=== PATIENT | male | born 1935 | race African-American/Black ===

== ENCOUNTER 2019-05-16 14:48 | Inpatient (IN) | payer MEDICARE, MEDICAID ==
[~2019-05-16] VITALS: Ht 182.9 cm; Wt 68.5 kg
[2019-05-16] MEDS ORDERED: SODIUM CHLORIDE 0.9% 1,000 ML IV ONE (15:12)
[2019-05-16 15:32] LABS: BASOPHILS % 0.2 % (0.0-2.0); EOSINOPHILS % 0.1 % (0.0-5.0); HEMOGLOBIN. 13.7 g/dL (14.0-18.0); LYMPHOCYTES % 8.6 % (20.0-50.0); MEAN CORPUSCULAR VOLUME 98.8 fL (80.0-94.0); MEAN PLATELET VOLUME 7.7 fl (7.4-10.4); MONOCYTES % 10.9 % (2.0-8.0); NEUTROPHILS % 80.2 % (40.0-76.0); PLATELET 392 x1000/uL (130-400); RED BLOOD CELL COUNT 4.15 mill/uL (4.7-6.1); RED CELL DISTRIBUTION WIDTH 13.4 % (11.6-14.6)
[2019-05-16 15:39] LABS: CHLORIDE 110 mEq/L (98-107)
[2019-05-16 15:41] LABS: PROTHROMBIN TIME 10.5 sec (9.6-11.0)
[2019-05-16] MEDS ORDERED: DEXTROSE 50% WATER 50ML SYRINGE IV ONE (16:15)
[2019-05-16] MEDS ORDERED: CALCIUM GLUCONATE 1,000 MG in DEXT 5% WATER 100 ML IV ONE (16:15)
[2019-05-16] MEDS ORDERED: INSULIN REGULAR (HUMULIN R) 300UNITS/3ML IV ONE (16:15)
[2019-05-16] MEDS ORDERED: SODIUM BICARBONATE 8.4% 1 MEQ/ML 50ML SYR IV ONE (16:15)
[2019-05-16 21:55] VITALS: BP 98/64
[2019-05-16 23:00] VITALS: BP 98/64
[2019-05-17] VITALS: BP 101/62
[2019-05-17] MEDS ORDERED: [UNRECOGNIZED DRUG - CODE] PO (01:04)
[2019-05-17] MEDS ORDERED: TOPUD PO (01:04)
[2019-05-17] MEDS ORDERED: CHOL400T PO (01:04)
[2019-05-17] MEDS ORDERED: FERR325T6 PO (01:04)
[2019-05-17] MEDS ORDERED: MIRT15TA6 PO (01:04)
[2019-05-17] MEDS ORDERED: POLY250017 MT (01:04)
[2019-05-17] MEDS ORDERED: SENN-170 PO (01:04)
[2019-05-17] MEDS ORDERED: MULT-1116 PO (01:04)
[2019-05-17] MEDS ORDERED: ASPI-1393 PO (01:04)
[2019-05-17] MEDS ORDERED: BUDE0.5A3 IH (01:04)
[2019-05-17] MEDS ORDERED: TRAV2.5D OP (01:04)
[2019-05-17] MEDS ORDERED: CRAN650C PO (01:04)
[2019-05-17] MEDS: DEXT 5%/0.45% NACL 1000ML 1,000 ML IV SCH ×3 (01:56→21:04)
[2019-05-17 04:00] VITALS: BP 99/71
[2019-05-17 07:29] LABS: HEMATOCRIT. 38.2 % (42.0-52.0); HEMOGLOBIN. 12.8 g/dL (14.0-18.0); MEAN CORPUSCULAR VOLUME 98.6 fL (80.0-94.0); MEAN PLATELET VOLUME 7.7 fl (7.4-10.4); PLATELET 335 x1000/uL (130-400); RED BLOOD CELL COUNT 3.88 mill/uL (4.7-6.1); RED CELL DISTRIBUTION WIDTH 13.1 % (11.6-14.6)
[2019-05-17 08:14] LABS: PLATELET ESTIMATE NORMAL
[2019-05-17 08:17] LABS: CHLORIDE 111 mEq/L (98-107)
[2019-05-17 08:25] LABS: PHOSPHORUS 3.5 mg/dL (2.5-4.9)
[2019-05-17 08:55] VITALS: BP 109/69
[2019-05-17] MEDS ORDERED: ACETAMINOPHEN 325MG TABLET PO PRN (09:00)
[2019-05-17] MEDS ORDERED: DEXTROMETHORPHAN PO PRN (11:00)
[2019-05-17] MEDS ORDERED: GUAIFENESIN PO PRN (11:00)
[2019-05-17] MEDS ORDERED: GUAIFENESIN-DM 200MG-20MG/10ML UDC PO PRN (11:00)
[2019-05-17] MEDS ORDERED: SODIUM POLYSTYRENE SULFONATE 15 G/60 ML BOT PO NR (12:00)
[2019-05-17] MEDS: CHOLECALCIFEROL (VIT D3) 400 UNIT TABLET PO SCH (12:11)
[2019-05-17 12:35] VITALS: BP 120/80
[2019-05-17 13:02] LABS: ETHANOL BLOOD < 10 mg/dL
[2019-05-17 13:07] LABS: CREATINE KINASE 43 IU/L (39-308)
[2019-05-17 13:08] LABS: T4 FREE 1.13 ng/dL (0.76-1.46)
[2019-05-17 13:11] LABS: CLARITY URINE TURBID (CLEAR); COLOR URINE YELLOW (YELLOW); KETONES URINE TRACE (NEGATIVE); LEUKOCYTE ESTERASE URINE 3+ (NEGATIVE); NITRITE URINE NEGATIVE (NEGATIVE); OCCULT BLOOD URINE 2+ (NEGATIVE); PH URINE 7.5 (4.5-8.0); PROTEIN URINE 3+ (NEGATIVE); SPECIFIC GRAVITY URINE 1.013 (1.005-1.030); UROBILINOGEN URINE 0.2 E.U./dL (0.2-1.0)
[2019-05-17 13:54] LABS: *AMPHETAMINES SCREEN URINE NEGATIVE (NEGATIVE); *BARBITURATES SCREEN URINE NEGATIVE (NEGATIVE); *BENZODIAZEPINES SCREEN URINE NEGATIVE (NEGATIVE); *COCAINE SCREEN URINE NEGATIVE (NEGATIVE); CANNABINOID URINE SCREEN NEGATIVE (NEGATIVE); OPIATES URINE SCREEN NEGATIVE (NEGATIVE); PHENCYCLIDINE URINE SCREEN NEGATIVE (NEGATIVE)
[2019-05-17 13:57] LABS: METHADONE URINE SCREEN NEGATIVE (NEGATIVE)
[2019-05-17 14:09] LABS: FOLIC ACID (FOLATE) SERUM 6.7 ng/mL (>5.38)
[2019-05-17 16:15] VITALS: BP 120/78
[2019-05-17 20:00] VITALS: BP 103/59
[2019-05-17] MEDS: LATANOPROST 0.005% OPHTH DROPS 2.5ML BOTHEYE SCH (21:04)
[2019-05-18] VITALS: BP 108/61
[2019-05-18 04:00] VITALS: BP 115/62
[2019-05-18] MEDS: DEXT 5%/0.45% NACL 1000ML 1,000 ML IV SCH ×2 (06:32→17:49)
[2019-05-18 07:12] LABS: EOSINOPHILS % 2.7 % (0.0-5.0); HEMOGLOBIN. 12.1 g/dL (14.0-18.0); LYMPHOCYTES % 14.5 % (20.0-50.0); MEAN CORPUSCULAR HEMOGLOBIN 33.2 pg (28.0-32.0); MEAN CORPUSCULAR VOLUME 98.9 fL (80.0-94.0); MEAN PLATELET VOLUME 7.9 fl (7.4-10.4); MONOCYTES % 12.8 % (2.0-8.0); PLATELET 325 x1000/uL (130-400); RED BLOOD CELL COUNT 3.64 mill/uL (4.7-6.1); RED CELL DISTRIBUTION WIDTH 13.1 % (11.6-14.6)
[2019-05-18 07:56] LABS: PHOSPHORUS 3.3 mg/dL (2.5-4.9)
[2019-05-18 08:00] VITALS: BP 111/55
[2019-05-18] MEDS: CHOLECALCIFEROL (VIT D3) 400 UNIT TABLET PO SCH (09:00)
[2019-05-18] MEDS: BUDESONIDE 0.5MG/2ML NEB HHN SCH ×5 (09:00→22:05)
[2019-05-18 12:00] VITALS: BP 99/60
[2019-05-18 16:00] VITALS: BP 99/55
[2019-05-18 20:00] VITALS: BP 109/68
[2019-05-18] MEDS: LATANOPROST 0.005% OPHTH DROPS 2.5ML BOTHEYE SCH (20:20)
[2019-05-19] VITALS: BP 111/67
[2019-05-19] MEDS: DEXT 5%/0.45% NACL 1000ML 1,000 ML IV SCH ×3 (02:54→21:44)
[2019-05-19 04:00] VITALS: BP 110/64
[2019-05-19 07:46] LABS: HEMATOCRIT. 34.8 % (42.0-52.0); HEMOGLOBIN. 11.4 g/dL (14.0-18.0); MEAN CORPUSCULAR HEMOGLOBIN 32.8 pg (28.0-32.0); MEAN CORPUSCULAR VOLUME 100.2 fL (80.0-94.0); MEAN PLATELET VOLUME 8.1 fl (7.4-10.4); PLATELET 275 x1000/uL (130-400); RED BLOOD CELL COUNT 3.48 mill/uL (4.7-6.1); RED CELL DISTRIBUTION WIDTH 12.9 % (11.6-14.6)
[2019-05-19 08:00] VITALS: BP 102/64
[2019-05-19] MEDS: CHOLECALCIFEROL (VIT D3) 400 UNIT TABLET PO SCH (08:57)
[2019-05-19] MEDS ORDERED: CEFTRIAXONE 1 G PREMIX 50 ML IV SCH (09:30)
[2019-05-19] MEDS: IPRATROPIUM/ALBUTEROL 0.5-3(2.5)MG/3ML NEB HHN SCH ×4 (09:54→20:40)
[2019-05-19] MEDS: BUDESONIDE 0.5MG/2ML NEB HHN SCH ×2 (09:54→20:40)
[2019-05-19] MEDS ORDERED: CEFAZOLIN 1000MG PREMIX 50 ML IV SCH (10:00)
[2019-05-19 10:26] LABS: TOTAL IRON BINDING CAPACITY 304 ug/dL (250-450)
[2019-05-19 11:33] LABS: PLATELET ESTIMATE NORMAL
[2019-05-19 12:00] VITALS: BP 104/59
[2019-05-19] MEDS: CEFTRIAXONE 1,000 MG in DEXTROSE 5% WATER 50 ML IV SCH (12:11)
[2019-05-19] MEDS ORDERED: FENTANYL CITRATE/PF 50MCG/ML 2ML VIAL ONE (15:24)
[2019-05-19] MEDS ORDERED: MIDAZOLAM HCL 5 MG/5 ML VIAL ONE (15:24)
[2019-05-19] MEDS ORDERED: MIDAZOLAM HCL 5 MG/5 ML VIAL IV PRN (15:24)
[2019-05-19 17:00] VITALS: BP 106/59
[2019-05-19 20:00] VITALS: BP 107/57
[2019-05-19] MEDS: LATANOPROST 0.005% OPHTH DROPS 2.5ML BOTHEYE SCH (21:45)
[2019-05-20] VITALS: BP 106/57
[2019-05-20] MEDS: IPRATROPIUM/ALBUTEROL 0.5-3(2.5)MG/3ML NEB HHN SCH ×5 (01:13→15:59)
[2019-05-20 04:00] VITALS: BP 121/79
[2019-05-20 08:00] VITALS: BP 95/55
[2019-05-20] MEDS: BUDESONIDE 0.5MG/2ML NEB HHN SCH (09:21)
[2019-05-20] MEDS: CHOLECALCIFEROL (VIT D3) 400 UNIT TABLET PO SCH (09:39)
[2019-05-20] MEDS: DEXT 5%/0.45% NACL 1000ML 1,000 ML IV SCH ×2 (09:40→22:26)
[2019-05-20] MEDS: CEFTRIAXONE 1,000 MG in DEXTROSE 5% WATER 50 ML IV SCH (11:29)
[2019-05-20 12:00] VITALS: BP 94/55
[2019-05-20 16:00] VITALS: BP 113/67
[2019-05-20 16:18] LABS: BASOPHILS % 0.5 % (0.0-2.0); EOSINOPHILS % 1.3 % (0.0-5.0); HEMATOCRIT. 33.1 % (42.0-52.0); HEMOGLOBIN. 11.1 g/dL (14.0-18.0); LYMPHOCYTES % 11.9 % (20.0-50.0); MEAN CORPUSCULAR HEMOGLOBIN 33.1 pg (28.0-32.0); MEAN CORPUSCULAR VOLUME 98.9 fL (80.0-94.0); MEAN PLATELET VOLUME 7.8 fl (7.4-10.4); MONOCYTES % 11.5 % (2.0-8.0); NEUTROPHILS % 74.8 % (40.0-76.0); PLATELET 284 x1000/uL (130-400); RED BLOOD CELL COUNT 3.35 mill/uL (4.7-6.1); RED CELL DISTRIBUTION WIDTH 12.8 % (11.6-14.6)
[2019-05-20 16:25] LABS: CHLORIDE 115 mEq/L (98-107)
[2019-05-20 20:32] VITALS: BP 104/65
[2019-05-20] MEDS: LATANOPROST 0.005% OPHTH DROPS 2.5ML BOTHEYE SCH (22:26)
[2019-05-21] VITALS: BP 110/67
[2019-05-21] MEDS: IPRATROPIUM/ALBUTEROL 0.5-3(2.5)MG/3ML NEB HHN SCH ×7 (00:15→23:51)
[2019-05-21 04:00] VITALS: BP 106/59
[2019-05-21] MEDS: DEXT 5%/0.45% NACL 1000ML 1,000 ML IV SCH ×2 (06:39→22:42)
[2019-05-21 08:53] VITALS: BP 124/79
[2019-05-21] MEDS: CHOLECALCIFEROL (VIT D3) 400 UNIT TABLET PO SCH (09:14)
[2019-05-21] MEDS: CEFTRIAXONE 1,000 MG in DEXTROSE 5% WATER 50 ML IV SCH (11:28)
[2019-05-21 12:35] VITALS: BP 124/73
[2019-05-21 15:47] LABS: HEMATOCRIT. 34.2 % (42.0-52.0); HEMOGLOBIN. 11.3 g/dL (14.0-18.0); MEAN CORPUSCULAR HEMOGLOBIN 32.5 pg (28.0-32.0); MEAN CORPUSCULAR VOLUME 98.7 fL (80.0-94.0); MEAN PLATELET VOLUME 8.2 fl (7.4-10.4); PLATELET 311 x1000/uL (130-400); RED BLOOD CELL COUNT 3.47 mill/uL (4.7-6.1); RED CELL DISTRIBUTION WIDTH 13.4 % (11.6-14.6)
[2019-05-21 16:24] VITALS: BP 112/71
[2019-05-21 20:18] LABS: PLATELET ESTIMATE NORMAL
[2019-05-21 20:23] VITALS: BP 107/64
[2019-05-21] MEDS: LATANOPROST 0.005% OPHTH DROPS 2.5ML BOTHEYE SCH (22:43)
[2019-05-22] VITALS: BP 110/68
[2019-05-22 04:00] VITALS: BP 115/68
[2019-05-22] MEDS: IPRATROPIUM/ALBUTEROL 0.5-3(2.5)MG/3ML NEB HHN SCH ×2 (04:19→07:59)
[2019-05-22 07:56] LABS: BASOPHILS % 0.3 % (0.0-2.0); LYMPHOCYTES % 8.7 % (20.0-50.0); MEAN CORPUSCULAR HEMOGLOBIN 33.3 pg (28.0-32.0); MEAN CORPUSCULAR VOLUME 99.8 fL (80.0-94.0); MEAN PLATELET VOLUME 8.5 fl (7.4-10.4); MONOCYTES % 10.5 % (2.0-8.0); NEUTROPHILS % 78.5 % (40.0-76.0); PLATELET 309 x1000/uL (130-400); RED CELL DISTRIBUTION WIDTH 13.2 % (11.6-14.6)
[2019-05-22 08:15] VITALS: BP 116/67
[2019-05-22] MEDS: CHOLECALCIFEROL (VIT D3) 400 UNIT TABLET PO SCH (10:18)
[2019-05-22 10:51] VITALS: BP 116/67
[2019-05-22 12:14] VITALS: BP 114/71
== END 2019-05-22 12:36 | DRG 682 ==
LOC: ER 14:48 → 6WST 18:25 → EDBEDREQ 18:27 → ENRESERV 20:11
PROVIDERS: ADMIT Internal Medicine Geriatric Medicine; ATTEND Internal Medicine Geriatric Medicine
PROC: 0DH63UZ Insertion of Feeding Device into Stomach, Percutaneous Approach (ICD-10-PCS; principal; 2019-05-19)
PROC: 4A10X4Z Monitoring of Central Nervous Electrical Activity, External Approach (ICD-10-PCS; 2019-05-19)
DX: N17.0 Acute kidney failure with tubular necrosis (principal); G92 Toxic encephalopathy; E43 Unspecified severe protein-calorie malnutrition; E87.2 Acidosis; N39.0 Urinary tract infection, site not specified; E87.5 Hyperkalemia; E86.0 Dehydration; F02.80 Dementia in other diseases classified elsewhere, unspecified severity, without behavioral disturbance, psychotic disturbance, mood disturbance, and anxiety; G20 Parkinson's disease; N18.9 Chronic kidney disease, unspecified; I12.9 Hypertensive chronic kidney disease with stage 1 through stage 4 chronic kidney disease, or unspecified chronic kidney disease; B96.89 Other specified bacterial agents as the cause of diseases classified elsewhere; E11.65 Type 2 diabetes mellitus with hyperglycemia; R13.12 Dysphagia, oropharyngeal phase; R26.9 Unspecified abnormalities of gait and mobility; D63.8 Anemia in other chronic diseases classified elsewhere; E11.22 Type 2 diabetes mellitus with diabetic chronic kidney disease; K29.70 Gastritis, unspecified, without bleeding; K44.9 Diaphragmatic hernia without obstruction or gangrene; N20.0 Calculus of kidney; R32 Unspecified urinary incontinence; R62.7 Adult failure to thrive; Z79.51 Long term (current) use of inhaled steroids; Z85.46 Personal history of malignant neoplasm of prostate; Z86.73 Personal history of transient ischemic attack (TIA), and cerebral infarction without residual deficits; Z93.1 Gastrostomy status; Z79.82 Long term (current) use of aspirin; Z68.20 Body mass index [BMI] 20.0-20.9, adult
CPT/HCPCS: 36415; 70551; 71045; 76770; 80048; 80305; 80320; 81003; 82140; 82550; 82607; 82746; 82962; 83036; 83540; 83550; 83735; 84100; 84439; 84443; 84481; 84550; 87077; 87186; 92610; 93005; 93970; 94640; 99291; A6261; C1893; J0610; J0690; J0696; J1815; J2250; J3010; J3490; J7030; J7060; J7620; J7626; G0480

== ENCOUNTER 2020-03-21 10:51 | Day surgery (SDC) | payer MEDICARE, MEDICAID ==
[~2020-03-21 10:51] MED LIST: APIX2.5T GT; ASCO500T20 PO; CHOL400T PO; CRAN650C PO; IPRA3AMP31 IH; MULT-1116 PO; SULF1TAB48 MT; TOPUD PO; XALAO EACHEYE; [UNRECOGNIZED DRUG - CODE] PO
[2020-03-21] MEDS ORDERED: SODIUM CHLORIDE 0.9% 1,000 ML IV SCH (12:00)
[2020-03-21] MEDS ORDERED: TERA1CAP7 GT (12:52)
[2020-03-21] MEDS ORDERED: INSU100I12 SQ (12:52)
[2020-03-21] MEDS ORDERED: THIA50TA10 GT (12:52)
[2020-03-21] MEDS ORDERED: FAMO20TA8 GT (12:52)
[2020-03-21] MEDS ORDERED: ERGO500013 GT (12:52)
[2020-03-21] MEDS ORDERED: IRON-11 GT (12:52)
[2020-03-21] MEDS ORDERED: MIDAZOLAM HCL 5 MG/5 ML VIAL ONE (13:10)
[2020-03-21] MEDS ORDERED: FENTANYL CITRATE/PF 50MCG/ML 2ML VIAL ONE (13:10)
[2020-03-21] MEDS ORDERED: MIDAZOLAM HCL 5 MG/5 ML VIAL IV PRN (13:40)
== END 2020-03-21 16:30 | disposition home or self-care (01) ==
LOC: OR 10:51
PROVIDERS: ATTEND Internal Medicine Gastroenterology
DX: K94.23 Gastrostomy malfunction (principal); R13.10 Dysphagia, unspecified; F03.90 Unspecified dementia, unspecified severity, without behavioral disturbance, psychotic disturbance, mood disturbance, and anxiety; K44.9 Diaphragmatic hernia without obstruction or gangrene; I12.9 Hypertensive chronic kidney disease with stage 1 through stage 4 chronic kidney disease, or unspecified chronic kidney disease; E11.22 Type 2 diabetes mellitus with diabetic chronic kidney disease; N18.9 Chronic kidney disease, unspecified; N40.1 Benign prostatic hyperplasia with lower urinary tract symptoms; E11.65 Type 2 diabetes mellitus with hyperglycemia; E78.5 Hyperlipidemia, unspecified; G20 Parkinson's disease; F02.80 Dementia in other diseases classified elsewhere, unspecified severity, without behavioral disturbance, psychotic disturbance, mood disturbance, and anxiety; Z85.46 Personal history of malignant neoplasm of prostate; Z79.84 Long term (current) use of oral hypoglycemic drugs; Z79.82 Long term (current) use of aspirin; Z79.899 Other long term (current) drug therapy; Z98.890 Other specified postprocedural states
CPT/HCPCS: 43246; 82962; J2250; J3010

== ENCOUNTER 2022-07-12 06:43 | Inpatient (IN) | payer MEDICARE, MEDICAID ==
[~2022-07-12] VITALS: Ht 185.4 cm; Wt 80.8 kg
[~2022-07-12 06:43] MED LIST changes: -CHOL400T PO; +ERGO1250 GT; +FAMO20TA8 GT; +INSU100I12 SQ; +IRON-11 GT; +TERA1CAP53 GT; +THIA50TA10 GT
[2022-07-12] MEDS ORDERED: SODIUM CHLORIDE 0.9% 500 ML IV ONE (07:30)
[2022-07-12 09:06] LABS: BG BASE EXCESS 6.5 mmol/L (-2.0-2.0); BG CARBOXYHEMOGLOBIN 1.2 % (0.5-1.5); BG HCO3 ACT 30.8 mmol/L (22.0-26.0); BG METHEMOGLOBIN 0.3 % (0.0-1.5); BG OXYGEN SATURATION 95.9 % (92.0-98.5); BG OXYHEMOGLOBIN 94.5 % (94.0-97.0); BG PCO2 43.3 mmHg (35.0-45.0); BG PO2 82.2 mmHg (75.0-100.0); BG SAMPLE SITE RIGHT RADIAL; BG VENT MODE NASAL CANNULA
[2022-07-12 09:11] LABS: HEMOGLOBIN. 10.8 g/dL (14.0-18.0); MEAN CORPUSCULAR VOLUME 100.6 fL (80.0-94.0); MEAN PLATELET VOLUME 8.9 fl (7.4-10.4); PLATELET 246 x1000/uL (130-400); RED BLOOD CELL COUNT 3.18 mill/uL (4.7-6.1); RED CELL DISTRIBUTION WIDTH 13.5 % (11.6-14.6)
[2022-07-12 09:14] LABS: CLARITY URINE TURBID (CLEAR); COLOR URINE YELLOW (YELLOW); KETONES URINE NEGATIVE (NEGATIVE); LEUKOCYTE ESTERASE URINE 3+ (NEGATIVE); NITRITE URINE NEGATIVE (NEGATIVE); OCCULT BLOOD URINE 2+ (NEGATIVE); PH URINE 8.5 (4.5-8.0); PROTEIN URINE 3+ (NEGATIVE); SPECIFIC GRAVITY URINE 1.014 (1.005-1.030); UROBILINOGEN URINE 0.2 E.U./dL (0.2-1.0)
[2022-07-12 09:16] LABS: CHLORIDE 101 mEq/L (98-107)
[2022-07-12 09:29] LABS: PROTHROMBIN TIME 10.7 sec (9.6-11.0)
[2022-07-12 09:45] LABS: PLATELET ESTIMATE NORMAL
[2022-07-12] MEDS ORDERED: CEFTRIAXONE 1 G PREMIX 50 ML IV NR (10:00)
[2022-07-12] MEDS ORDERED: ONDANSETRON HCL 4MG/2ML INJ IV PRN (11:45)
[2022-07-12] MEDS ORDERED: ACETAMINOPHEN 650MG/20.3ML UDC GT PRN (11:45)
[2022-07-12] MEDS ORDERED: ENOXAPARIN 40MG/0.4ML SYR SUBCUT SCH (11:45)
[2022-07-12] MEDS ORDERED: HYDROCODONE/ACETAMINOPHEN 5/325MG TABLET PO PRN (11:45)
[2022-07-12] MEDS: SODIUM CHLORIDE 0.45% 1,000 ML IV SCH (13:23)
[2022-07-12] MEDS: AMLODIPINE 2.5MG TABLET GT SCH (14:56)
[2022-07-12] MEDS: APIXABAN 2.5 MG TABLET GT SCH (17:48)
[2022-07-12 22:28] VITALS: BP 138/85
[2022-07-12] MEDS ORDERED: DEXTROSE 50% WATER 50ML SYRINGE IV PRN (22:30)
[2022-07-12] MEDS: TERAZOSIN HCL 1MG CAPSULE GT SCH (23:05)
[2022-07-13] VITALS: BP 92/53
[2022-07-13 04:00] VITALS: BP 110/65
[2022-07-13] MEDS: SODIUM CHLORIDE 0.45% 1,000 ML IV SCH ×2 (04:52→20:58)
[2022-07-13 07:08] LABS: HEMATOCRIT. 31.4 % (42.0-52.0); HEMOGLOBIN. 10.5 g/dL (14.0-18.0); MEAN CORPUSCULAR VOLUME 101.6 fL (80.0-94.0); MEAN PLATELET VOLUME 8.9 fl (7.4-10.4); PLATELET 255 x1000/uL (130-400); RED BLOOD CELL COUNT 3.09 mill/uL (4.7-6.1); RED CELL DISTRIBUTION WIDTH 13.4 % (11.6-14.6)
[2022-07-13 07:31] LABS: CHLORIDE 109 mEq/L (98-107)
[2022-07-13] MEDS: BLOOD SUGAR DIAGNOSTIC STRIP TEST SCH ×4 (07:40→20:50)
[2022-07-13 08:00] VITALS: BP 112/61
[2022-07-13] MEDS: INSULIN LISPRO 100 UNITS/ML SUBCUT SCH ×4 (08:10→20:50)
[2022-07-13] MEDS: AMLODIPINE 2.5MG TABLET GT SCH (08:38)
[2022-07-13] MEDS: APIXABAN 2.5 MG TABLET GT SCH (08:38)
[2022-07-13] MEDS ORDERED: CEFTRIAXONE 1,000 MG in DEXTROSE 5% WATER 50 ML IV SCH (09:00)
[2022-07-13] MEDS ORDERED: NALOXONE HCL 0.4MG/ML VIAL IV PRN (09:15)
[2022-07-13 09:52] LABS: TOTAL IRON BINDING CAPACITY 207 ug/dL (250-450)
[2022-07-13] MEDS: DOCUSATE SODIUM SUGAR FREE 100MG/10ML UDC NG SCH (10:25)
[2022-07-13] MEDS: CEFTRIAXONE 1,000 MG in DEXTROSE 5% WATER 50 ML IV SCH (10:25)
[2022-07-13 12:00] VITALS: BP 95/54
[2022-07-13] MEDS: FERROUS SULFATE 325MG TABLET PO SCH (17:45)
[2022-07-13 20:00] VITALS: BP 154/80
[2022-07-13] MEDS: TERAZOSIN HCL 1MG CAPSULE GT SCH (20:59)
[2022-07-13 21:28] LABS: PLATELET ESTIMATE NORMAL
[2022-07-14] VITALS: BP 149/76
[2022-07-14 04:00] VITALS: BP 169/74
[2022-07-14] MEDS: CLONIDINE 0.1MG TABLET PO PRN (05:15)
[2022-07-14] MEDS: BLOOD SUGAR DIAGNOSTIC STRIP TEST SCH ×4 (07:40→21:00)
[2022-07-14 08:00] VITALS: BP 142/74
[2022-07-14] MEDS: INSULIN LISPRO 100 UNITS/ML SUBCUT SCH ×4 (08:10→21:00)
[2022-07-14 08:35] LABS: HEMATOCRIT. 29.4 % (42.0-52.0); HEMOGLOBIN. 9.8 g/dL (14.0-18.0); MEAN CORPUSCULAR HEMOGLOBIN 33.7 pg (28.0-32.0); MEAN CORPUSCULAR VOLUME 101.4 fL (80.0-94.0); MEAN PLATELET VOLUME 8.8 fl (7.4-10.4); PLATELET 272 x1000/uL (130-400); RED CELL DISTRIBUTION WIDTH 13.2 % (11.6-14.6)
[2022-07-14] MEDS: DOCUSATE SODIUM SUGAR FREE 100MG/10ML UDC NG SCH (08:42)
[2022-07-14] MEDS: CEFTRIAXONE 1,000 MG in DEXTROSE 5% WATER 50 ML IV SCH (08:42)
[2022-07-14] MEDS: AMLODIPINE 2.5MG TABLET GT SCH (08:42)
[2022-07-14] MEDS: FERROUS SULFATE 325MG TABLET PO SCH ×2 (08:42→16:43)
[2022-07-14 08:47] LABS: CHLORIDE 111 mEq/L (98-107)
[2022-07-14] MEDS ORDERED: AMLODIPINE 2.5MG TABLET GT NR (09:30)
[2022-07-14 12:00] VITALS: BP 132/63
[2022-07-14 15:10] LABS: PLATELET ESTIMATE NORMAL
[2022-07-14] MEDS: SODIUM CHLORIDE 0.45% 1,000 ML IV SCH (15:50)
[2022-07-14 16:00] VITALS: BP 135/70
[2022-07-14 20:00] VITALS: BP 108/69
[2022-07-14] MEDS: TERAZOSIN HCL 1MG CAPSULE GT SCH (21:28)
[2022-07-15] VITALS: BP 144/74
[2022-07-15 04:00] VITALS: BP 122/80
[2022-07-15] MEDS: BLOOD SUGAR DIAGNOSTIC STRIP TEST SCH ×4 (06:32→20:38)
[2022-07-15] MEDS: SODIUM CHLORIDE 0.45% 1,000 ML IV SCH (06:40)
[2022-07-15] MEDS: INSULIN LISPRO 100 UNITS/ML SUBCUT SCH ×4 (07:16→20:38)
[2022-07-15 08:00] VITALS: BP 142/86
[2022-07-15] MEDS: CEFTRIAXONE 1,000 MG in DEXTROSE 5% WATER 50 ML IV SCH (09:15)
[2022-07-15] MEDS: AMLODIPINE 2.5MG TABLET GT SCH (09:15)
[2022-07-15] MEDS: DOCUSATE SODIUM SUGAR FREE 100MG/10ML UDC NG SCH (09:16)
[2022-07-15] MEDS: FERROUS SULFATE 325MG TABLET PO SCH ×2 (09:16→17:38)
[2022-07-15 12:30] VITALS: BP 126/68
[2022-07-15 12:39] LABS: HEMATOCRIT. 28.2 % (42.0-52.0); HEMOGLOBIN. 9.4 g/dL (14.0-18.0); MEAN CORPUSCULAR HEMOGLOBIN 34.1 pg (28.0-32.0); MEAN CORPUSCULAR VOLUME 102.2 fL (80.0-94.0); MEAN PLATELET VOLUME 8.7 fl (7.4-10.4); PLATELET 274 x1000/uL (130-400); RED BLOOD CELL COUNT 2.76 mill/uL (4.7-6.1); RED CELL DISTRIBUTION WIDTH 13.1 % (11.6-14.6)
[2022-07-15 13:44] LABS: PLATELET ESTIMATE NORMAL
[2022-07-15 13:46] LABS: CHLORIDE 115 mEq/L (98-107)
[2022-07-15] MEDS: MEROPENEM 1,000 MG in SODIUM CHLORIDE 0.9% 100 ML IV SCH ×2 (13:57→17:48)
[2022-07-15 16:00] VITALS: BP 129/69
[2022-07-15 20:00] VITALS: BP 123/67
[2022-07-15] MEDS: TERAZOSIN HCL 1MG CAPSULE GT SCH (20:37)
[2022-07-16 00:05] VITALS: BP 134/76
[2022-07-16] MEDS: MEROPENEM 1,000 MG in SODIUM CHLORIDE 0.9% 100 ML IV SCH ×4 (03:01→18:19)
[2022-07-16 04:00] VITALS: BP 126/74
[2022-07-16] MEDS: BLOOD SUGAR DIAGNOSTIC STRIP TEST SCH ×4 (05:32→21:00)
[2022-07-16] MEDS: INSULIN LISPRO 100 UNITS/ML SUBCUT SCH ×4 (05:32→21:00)
[2022-07-16 07:46] LABS: HEMATOCRIT. 30.1 % (42.0-52.0); HEMOGLOBIN. 10.1 g/dL (14.0-18.0); MEAN CORPUSCULAR HEMOGLOBIN 34.3 pg (28.0-32.0); MEAN CORPUSCULAR VOLUME 101.9 fL (80.0-94.0); MEAN PLATELET VOLUME 8.6 fl (7.4-10.4); PLATELET 289 x1000/uL (130-400); RED BLOOD CELL COUNT 2.95 mill/uL (4.7-6.1); RED CELL DISTRIBUTION WIDTH 13.5 % (11.6-14.6)
[2022-07-16 08:04] LABS: CHLORIDE 118 mEq/L (98-107)
[2022-07-16 08:10] VITALS: BP 158/84
[2022-07-16] MEDS: FERROUS SULFATE 325MG TABLET PO SCH ×2 (09:04→18:00)
[2022-07-16] MEDS: DOCUSATE SODIUM SUGAR FREE 100MG/10ML UDC NG SCH (09:04)
[2022-07-16] MEDS: AMLODIPINE 2.5MG TABLET GT SCH (09:12)
[2022-07-16 12:30] VITALS: BP 146/86
[2022-07-16 13:23] LABS: PLATELET ESTIMATE NORMAL
[2022-07-16 16:00] VITALS: BP 179/101
[2022-07-16 20:00] VITALS: BP 162/85
[2022-07-16] MEDS: TERAZOSIN HCL 1MG CAPSULE GT SCH (22:19)
[2022-07-17 00:16] VITALS: BP 148/73
[2022-07-17] MEDS: MEROPENEM 1,000 MG in SODIUM CHLORIDE 0.9% 100 ML IV SCH ×3 (02:16→18:23)
[2022-07-17 04:00] VITALS: BP_SYST 150; BP_SYST 152; BP_DIAS 89
[2022-07-17 07:05] LABS: BASOPHILS % 0.2 % (0.0-2.0); EOSINOPHILS % 0.9 % (0.0-5.0); HEMATOCRIT. 30.9 % (42.0-52.0); HEMOGLOBIN. 10.1 g/dL (14.0-18.0); LYMPHOCYTES % 7.3 % (20.0-50.0); MEAN CORPUSCULAR HEMOGLOBIN 33.8 pg (28.0-32.0); MEAN CORPUSCULAR VOLUME 103.2 fL (80.0-94.0); MEAN PLATELET VOLUME 8.7 fl (7.4-10.4); MONOCYTES % 6.6 % (2.0-8.0); PLATELET 313 x1000/uL (130-400); RED CELL DISTRIBUTION WIDTH 13.6 % (11.6-14.6)
[2022-07-17 07:08] LABS: CHLORIDE 122 mEq/L (98-107)
[2022-07-17 08:00] VITALS: BP 129/89
[2022-07-17] MEDS: INSULIN LISPRO 100 UNITS/ML SUBCUT SCH ×4 (08:10→21:00)
[2022-07-17] MEDS: BLOOD SUGAR DIAGNOSTIC STRIP TEST SCH ×4 (08:28→21:35)
[2022-07-17] MEDS: FERROUS SULFATE 325MG TABLET PO SCH ×2 (09:36→17:05)
[2022-07-17] MEDS: AMLODIPINE 2.5MG TABLET GT SCH (09:36)
[2022-07-17] MEDS: DOCUSATE SODIUM SUGAR FREE 100MG/10ML UDC NG SCH (09:37)
[2022-07-17] MEDS: DEXTROSE 5% WATER 1,000 ML IV SCH (09:44)
[2022-07-17 12:00] VITALS: BP 142/78
[2022-07-17] MEDS: DESMOPRESSIN ACETATE 4MCG/ML AMP IV SCH ×2 (12:16→21:46)
[2022-07-17 16:00] VITALS: BP 134/73
[2022-07-17 20:00] VITALS: BP 150/78
[2022-07-17] MEDS: TERAZOSIN HCL 1MG CAPSULE GT SCH (21:46)
[2022-07-18] VITALS: BP 150/82
[2022-07-18] MEDS: DEXTROSE 5% WATER 1,000 ML IV SCH ×3 (00:41→22:10)
[2022-07-18] MEDS: MEROPENEM 1,000 MG in SODIUM CHLORIDE 0.9% 100 ML IV SCH ×3 (03:04→21:33)
[2022-07-18 04:00] VITALS: BP 154/79
[2022-07-18 06:15] LABS: BASOPHILS % 0.5 % (0.0-2.0); EOSINOPHILS % 0.5 % (0.0-5.0); HEMATOCRIT. 32.2 % (42.0-52.0); HEMOGLOBIN. 10.7 g/dL (14.0-18.0); LYMPHOCYTES % 12.2 % (20.0-50.0); MEAN CORPUSCULAR HEMOGLOBIN 34.4 pg (28.0-32.0); MEAN CORPUSCULAR VOLUME 102.9 fL (80.0-94.0); MEAN PLATELET VOLUME 8.5 fl (7.4-10.4); MONOCYTES % 6.8 % (2.0-8.0); PLATELET 314 x1000/uL (130-400); RED BLOOD CELL COUNT 3.12 mill/uL (4.7-6.1); RED CELL DISTRIBUTION WIDTH 13.5 % (11.6-14.6)
[2022-07-18 06:33] LABS: CHLORIDE 124 mEq/L (98-107)
[2022-07-18] MEDS: BLOOD SUGAR DIAGNOSTIC STRIP TEST SCH ×4 (07:40→21:42)
[2022-07-18] MEDS: INSULIN LISPRO 100 UNITS/ML SUBCUT SCH ×4 (07:41→21:00)
[2022-07-18 08:00] VITALS: BP 119/91
[2022-07-18] MEDS: AMLODIPINE 2.5MG TABLET GT SCH (10:04)
[2022-07-18] MEDS: DOCUSATE SODIUM SUGAR FREE 100MG/10ML UDC NG SCH (10:04)
[2022-07-18] MEDS: FERROUS SULFATE 325MG TABLET PO SCH ×2 (10:04→17:32)
[2022-07-18] MEDS: DESMOPRESSIN ACETATE 4MCG/ML AMP IV SCH ×2 (10:32→21:33)
[2022-07-18 12:00] VITALS: BP 132/78
[2022-07-18 16:00] VITALS: BP 121/50
[2022-07-18 20:00] VITALS: BP 146/77
[2022-07-18] MEDS: TERAZOSIN HCL 1MG CAPSULE GT SCH (21:42)
[2022-07-19 00:50] VITALS: BP 100/70
[2022-07-19 04:00] VITALS: BP 130/73
[2022-07-19] MEDS: MEROPENEM 1,000 MG in SODIUM CHLORIDE 0.9% 100 ML IV SCH ×3 (04:39→21:53)
[2022-07-19] MEDS: BLOOD SUGAR DIAGNOSTIC STRIP TEST SCH ×4 (07:49→21:54)
[2022-07-19] MEDS: INSULIN LISPRO 100 UNITS/ML SUBCUT SCH ×4 (07:49→21:00)
[2022-07-19 08:00] VITALS: BP 129/57
[2022-07-19 08:24] LABS: BASOPHILS % 0.7 % (0.0-2.0); EOSINOPHILS % 0.7 % (0.0-5.0); HEMATOCRIT. 32.2 % (42.0-52.0); HEMOGLOBIN. 10.5 g/dL (14.0-18.0); LYMPHOCYTES % 8.8 % (20.0-50.0); MEAN CORPUSCULAR HEMOGLOBIN 33.5 pg (28.0-32.0); MEAN CORPUSCULAR VOLUME 103.1 fL (80.0-94.0); MEAN PLATELET VOLUME 8.9 fl (7.4-10.4); MONOCYTES % 7.5 % (2.0-8.0); NEUTROPHILS % 82.3 % (40.0-76.0); PLATELET 311 x1000/uL (130-400); RED BLOOD CELL COUNT 3.12 mill/uL (4.7-6.1); RED CELL DISTRIBUTION WIDTH 13.7 % (11.6-14.6)
[2022-07-19 08:27] LABS: CHLORIDE 121 mEq/L (98-107)
[2022-07-19] MEDS: FERROUS SULFATE 325MG TABLET PO SCH ×2 (09:48→18:14)
[2022-07-19] MEDS: AMLODIPINE 2.5MG TABLET GT SCH (09:48)
[2022-07-19] MEDS: DOCUSATE SODIUM SUGAR FREE 100MG/10ML UDC NG SCH (09:50)
[2022-07-19] MEDS: DEXTROSE 5% WATER 1,000 ML IV SCH ×2 (09:52→21:53)
[2022-07-19 12:00] VITALS: BP 123/77
[2022-07-19] MEDS: DESMOPRESSIN ACETATE 4MCG/ML AMP IV SCH (14:54)
[2022-07-19 16:00] VITALS: BP 105/46
[2022-07-19 20:00] VITALS: BP 158/73
[2022-07-19] MEDS: TERAZOSIN HCL 1MG CAPSULE GT SCH (21:54)
[2022-07-20] MEDS: DESMOPRESSIN ACETATE 4MCG/ML AMP IV SCH (00:02)
[2022-07-20 00:41] VITALS: BP 174/69
[2022-07-20 04:00] VITALS: BP 166/77
[2022-07-20] MEDS: CLONIDINE 0.1MG TABLET PO PRN (06:21)
[2022-07-20] MEDS: MEROPENEM 1,000 MG in SODIUM CHLORIDE 0.9% 100 ML IV SCH (06:21)
[2022-07-20] MEDS: BLOOD SUGAR DIAGNOSTIC STRIP TEST SCH (06:22)
[2022-07-20] MEDS: DEXTROSE 5% WATER 1,000 ML IV SCH (06:22)
[2022-07-20 06:57] LABS: BASOPHILS % 0.6 % (0.0-2.0); HEMATOCRIT. 28.9 % (42.0-52.0); HEMOGLOBIN. 9.9 g/dL (14.0-18.0); LYMPHOCYTES % 15.4 % (20.0-50.0); MEAN CORPUSCULAR HEMOGLOBIN 35.4 pg (28.0-32.0); MEAN CORPUSCULAR VOLUME 103.1 fL (80.0-94.0); MEAN PLATELET VOLUME 8.8 fl (7.4-10.4); MONOCYTES % 6.4 % (2.0-8.0); NEUTROPHILS % 75.6 % (40.0-76.0); PLATELET 286 x1000/uL (130-400); RED CELL DISTRIBUTION WIDTH 13.6 % (11.6-14.6)
[2022-07-20 08:00] VITALS: BP 119/66
[2022-07-20 08:11] LABS: CHLORIDE 122 mEq/L (98-107)
[2022-07-20 08:15] LABS: PHOSPHORUS 1.9 mg/dL (2.5-4.9)
[2022-07-20] MEDS ORDERED: DEXT 5%/0.45% NACL 1000ML 1,000 ML IV SCH (09:15)
[2022-07-20 09:40] VITALS: BP 119/66
[2022-07-20] MEDS ORDERED: POTASSIUM PHOS,M-BASIC-D-BASIC 15 MMOL in DEXT 5% WATER 245 ML IV NR (11:00)
== END 2022-07-20 11:46 | DRG 871 ==
LOC: ER 06:43 → EDBEDREQ 07:48 → EDBEDREQTM 10:42 → ENRESERV 20:35 → 7WST 22:03
PROVIDERS: ADMIT Internal Medicine Nephrology; ATTEND Internal Medicine Nephrology
DX: A41.9 Sepsis, unspecified organism (principal); E43 Unspecified severe protein-calorie malnutrition; N13.6 Pyonephrosis; I45.2 Bifascicular block; N17.9 Acute kidney failure, unspecified; N39.0 Urinary tract infection, site not specified; E44.0 Moderate protein-calorie malnutrition; E87.1 Hypo-osmolality and hyponatremia; N13.9 Obstructive and reflux uropathy, unspecified; F02.80 Dementia in other diseases classified elsewhere, unspecified severity, without behavioral disturbance, psychotic disturbance, mood disturbance, and anxiety; K40.90 Unilateral inguinal hernia, without obstruction or gangrene, not specified as recurrent; Z20.822 Contact with and (suspected) exposure to COVID-19; G20 Parkinson's disease; I10 Essential (primary) hypertension; E11.65 Type 2 diabetes mellitus with hyperglycemia; D50.9 Iron deficiency anemia, unspecified; J44.9 Chronic obstructive pulmonary disease, unspecified; N43.3 Hydrocele, unspecified; E78.00 Pure hypercholesterolemia, unspecified; R31.9 Hematuria, unspecified; J20.9 Acute bronchitis, unspecified; R62.7 Adult failure to thrive; N20.0 Calculus of kidney; I80.9 Phlebitis and thrombophlebitis of unspecified site; I34.81 Nonrheumatic mitral (valve) annulus calcification; Z93.1 Gastrostomy status; Z86.718 Personal history of other venous thrombosis and embolism; Z99.81 Dependence on supplemental oxygen; Z74.01 Bed confinement status; Z68.23 Body mass index [BMI] 23.0-23.9, adult
CPT/HCPCS: 36415; 36600; 71045; 74176; 76770; 76870; 80048; 80053; 81003; 82375; 82805; 82962; 83036; 83540; 83550; 83605; 83735; 83880; 84100; 84145; 84443; 84484; 85025; 87077; 87186; 87426; 87804; 93005; 93306; 93970; 93976; 99285; C1893; C9803; J0696; J2185; J2597; J3490; J7040; J7050; J7060; J7070

== ENCOUNTER 2023-04-22 13:01 | Inpatient (IN) | payer MEDICARE, MEDICAID ==
[~2023-04-22] VITALS: Ht 193 cm; Wt 85.3 kg
[2023-04-22] MEDS ORDERED: CEFTRIAXONE 1GM PREMIX 50 ML IV ONE (13:45)
[2023-04-22] MEDS ORDERED: VANCOMYCIN 1G PREMIX 200 ML IV ONE (13:45)
[2023-04-22] MEDS ORDERED: SODIUM CHLORIDE 0.9% 1000ML BAG (SEPSIS BOLUS) IV ONE (13:45)
[2023-04-22 14:08] LABS: HEMATOCRIT. 28.2 % (42.0-52.0); HEMOGLOBIN. 9.5 g/dL (14.0-18.0); MEAN CORPUSCULAR HEMOGLOBIN 33.5 pg (28.0-32.0); MEAN CORPUSCULAR HGB CONC 33.7 g/dL (31.0-37.0); MEAN CORPUSCULAR VOLUME 99.4 fL (80.0-94.0); MEAN PLATELET VOLUME 10.8 fl (7.4-10.4); PLATELET 109 x1000/uL (130-400); RED BLOOD CELL COUNT 2.84 mill/uL (4.7-6.1); RED CELL DISTRIBUTION WIDTH 13.7 % (11.6-14.6); WHITE BLOOD COUNT 11.6 x1000/uL (4.5-11.0)
[2023-04-22 14:09] LABS: DIFFERENTIAL COMMENT 1
[2023-04-22 14:17] LABS: CLARITY URINE TURBID (CLEAR); COLOR URINE RED (YELLOW); GLUCOSE URINE NEGATIVE (NEGATIVE); KETONES URINE NEGATIVE (NEGATIVE); LEUKOCYTE ESTERASE URINE 3+ (NEGATIVE); NITRITE URINE POSITIVE (NEGATIVE); OCCULT BLOOD URINE 2+ (NEGATIVE); PH URINE 8.5 (4.5-8.0); PROTEIN URINE 2+ (NEGATIVE); SPECIFIC GRAVITY URINE 1.007 (1.005-1.030); UROBILINOGEN URINE 0.2 E.U./dL (0.2-1.0)
[2023-04-22 14:21] LABS: INDEX HEMOLYSI 1 (1-3); INDEX ICTERIC 1 (1-4); INDEX LIPEMIC 1 (1-3)
[2023-04-22 14:30] LABS: RBC URINE 25-50 /hpf (0-2)
[2023-04-22 14:31] LABS: SQUAMOUS EPITHELIAL CELL URINE 2+ /lpf (RARE/1+)
[2023-04-22 14:32] LABS: BACTERIA URINE 4+
[2023-04-22 14:34] LABS: NUCLEATED RED BLOOD CELLS 1 /100 WBC; PLATELET ESTIMATE DECREASED
[2023-04-22 14:36] LABS: TROPONIN I HIGH SENSITIVITY 69 ng/L (<78)
[2023-04-22] MEDS ORDERED: NOREPINEPHRINE 8MG/250ML PMX 250 ML IV ONE (15:00)
[2023-04-22 15:15] LABS: LACTIC ACID 4.5 mmol/L (0.4-2.0)
[2023-04-22 15:42] LABS: ALANINE AMINOTRANSFERASE 28 IU/L (13-61); ALBUMIN 2.4 g/dL (3.4-5.0); ASPARTATE AMINOTRANSFERASE 53 IU/L (15-37); BILIRUBIN TOTAL 0.8 mg/dL (0.1-1.0); CARBON DIOXIDE 29 mEq/L (21-32); CHLORIDE 95 mEq/L (98-107); CREATININE 1.6 mg/dL (0.6-1.3); GLUCOSE 133 mg/dL (70-105); SODIUM 131 mEq/L (136-145)
[2023-04-22 15:50] LABS: UREA NITROGEN BLOOD 113 mg/dL (7-21)
[2023-04-22 15:52] LABS: INR 1.1; PROTHROMBIN TIME 11.4 sec (9.6-11.0)
[2023-04-22 16:27] LABS: TROPONIN I HIGH SENSITIVITY 56 ng/L (<78)
[2023-04-22] MEDS ORDERED: AZITHROMYCIN 500 MG in DEXT 5% WATER 250 ML IV SCH (17:30)
[2023-04-22] MEDS ORDERED: ACETAMINOPHEN 650MG/20.3ML UDC GT PRN (17:45)
[2023-04-22] MEDS ORDERED: TAMSULOSIN HCL 0.4MG SR CAPSULE PO NR (17:45)
[2023-04-22] MEDS: SODIUM CHLORIDE 0.45% 1,000 ML IV SCH (18:40)
[2023-04-22] MEDS: CEFEPIME 1,000 MG in DEXTROSE 5% WATER 50 ML IV SCH (19:41)
[2023-04-22 21:19] VITALS: PULSE 103; RESP 15; O2SAT 99
[2023-04-22] MEDS: IPRATROPIUM/ALBUTEROL 0.5-3(2.5)MG/3ML NEB HHN SCH (21:19)
[2023-04-22] MEDS: FAMOTIDINE 20MG TABLET GT SCH (21:22)
[2023-04-22 21:32] LABS: INDEX HEMOLYSI 1 (1-3); INDEX ICTERIC 1 (1-4); INDEX LIPEMIC 1 (1-3)
[2023-04-22 21:37] LABS: IRON 14 ug/dL (50-175); TOTAL IRON BINDING CAPACITY 181 ug/dL (250-450)
[2023-04-23] VITALS (11 sets, daily range): BP systolic 100–107; BP diastolic 48–55; PULSE 67–101; RESP 13–18; TEMP 97.1–97.8; O2SAT 76–99
[2023-04-23] MEDS: IPRATROPIUM/ALBUTEROL 0.5-3(2.5)MG/3ML NEB HHN SCH ×7 (01:13→23:49)
[2023-04-23] MEDS: SODIUM CHLORIDE 0.45% 1,000 ML IV SCH ×3 (04:02→23:55)
[2023-04-23 06:03] LABS: HEMATOCRIT. 25.4 % (42.0-52.0); HEMOGLOBIN. 8.2 g/dL (14.0-18.0); MEAN CORPUSCULAR HEMOGLOBIN 32.5 pg (28.0-32.0); MEAN CORPUSCULAR HGB CONC 32.5 g/dL (31.0-37.0); MEAN CORPUSCULAR VOLUME 100.1 fL (80.0-94.0); MEAN PLATELET VOLUME 10.9 fl (7.4-10.4); PLATELET 109 x1000/uL (130-400); RED BLOOD CELL COUNT 2.54 mill/uL (4.7-6.1); RED CELL DISTRIBUTION WIDTH 13.8 % (11.6-14.6); WHITE BLOOD COUNT 39.1 x1000/uL (4.5-11.0)
[2023-04-23 06:15] LABS: DIFFERENTIAL COMMENT 1
[2023-04-23 06:16] LABS: POTASSIUM 3.8 mEq/L (3.5-5.1)
[2023-04-23 06:21] LABS: CALCIUM 8.4 mg/dL (8.5-10.1); CREATININE 1.4 mg/dL (0.6-1.3); PHOSPHORUS 2.2 mg/dL (2.5-4.9); URIC ACID 6.9 mg/dL (2.6-7.2)
[2023-04-23] MEDS: CEFEPIME 1,000 MG in DEXTROSE 5% WATER 50 ML IV SCH ×2 (06:22→21:00)
[2023-04-23] MEDS ORDERED: MIDODRINE HCL 2.5MG TABLET GT NR (09:45)
[2023-04-23] MEDS ORDERED: POTASSIUM-SODIUM PHOSPHATE POWDER PACKET GT NR (09:45)
[2023-04-23] MEDS: DOCUSATE SODIUM SUGAR FREE 100MG/10ML UDC GT SCH (10:30)
[2023-04-23] MEDS: FOLIC ACID/VITAMIN B COMP W-C TABLET PO SCH (12:58)
[2023-04-23] MEDS: MIDODRINE HCL 2.5MG TABLET GT SCH ×2 (12:59→17:31)
[2023-04-23] MEDS: FERROUS SULFATE 300MG/5ML UDC GT SCH ×2 (13:00→17:38)
[2023-04-23] MEDS ORDERED: VANCOMYCIN 1G PREMIX 200 ML IV NR ×2 (14:00→16:00)
[2023-04-23 14:08] LABS: INDEX HEMOLYSI 1 (1-3)
[2023-04-23 14:26] LABS: CREATINE KINASE 1451 IU/L (39-308)
[2023-04-23] MEDS ORDERED: DEXTROSE 50% WATER 50ML SYRINGE IV PRN (16:00)
[2023-04-23] MEDS: BLOOD SUGAR DIAGNOSTIC STRIP TEST SCH ×2 (17:36→21:00)
[2023-04-23] MEDS: INSULIN LISPRO 100 UNITS/ML SUBCUT SCH (17:37)
[2023-04-23] MEDS: POTASSIUM-SODIUM PHOSPHATE POWDER PACKET GT SCH (17:37)
[2023-04-23] MEDS: FAMOTIDINE 20MG TABLET GT SCH (21:00)
[2023-04-23 22:52] LABS: PLATELET ESTIMATE DECREASED
[2023-04-24] VITALS (10 sets, daily range): BP systolic 98–114; BP diastolic 45–57; PULSE 74–98; RESP 16–20; TEMP 96.9–98; O2SAT 90–99
[2023-04-24] MEDS: IPRATROPIUM/ALBUTEROL 0.5-3(2.5)MG/3ML NEB HHN SCH ×5 (03:33→21:05)
[2023-04-24] MEDS: INSULIN LISPRO 100 UNITS/ML SUBCUT SCH ×2 (06:00→18:00)
[2023-04-24] MEDS: BLOOD SUGAR DIAGNOSTIC STRIP TEST SCH ×3 (06:27→18:21)
[2023-04-24 08:22] LABS: HEMATOCRIT. 22.8 % (42.0-52.0); HEMOGLOBIN. 7.6 g/dL (14.0-18.0); MEAN CORPUSCULAR HEMOGLOBIN 33.7 pg (28.0-32.0); MEAN CORPUSCULAR HGB CONC 33.5 g/dL (31.0-37.0); MEAN CORPUSCULAR VOLUME 100.8 fL (80.0-94.0); MEAN PLATELET VOLUME 11.3 fl (7.4-10.4); PLATELET 98 x1000/uL (130-400); RED BLOOD CELL COUNT 2.26 mill/uL (4.7-6.1); RED CELL DISTRIBUTION WIDTH 13.8 % (11.6-14.6); WHITE BLOOD COUNT 31.8 x1000/uL (4.5-11.0)
[2023-04-24 08:28] LABS: DIFFERENTIAL COMMENT 1
[2023-04-24 08:37] LABS: POTASSIUM 3.4 mEq/L (3.5-5.1)
[2023-04-24 08:57] LABS: CALCIUM 8.8 mg/dL (8.5-10.1); CREATININE 1.4 mg/dL (0.6-1.3)
[2023-04-24] MEDS: DOCUSATE SODIUM SUGAR FREE 100MG/10ML UDC GT SCH (09:00)
[2023-04-24] MEDS: CEFEPIME 1,000 MG in DEXTROSE 5% WATER 50 ML IV SCH ×2 (09:09→20:39)
[2023-04-24] MEDS: FOLIC ACID/VITAMIN B COMP W-C TABLET PO SCH (09:10)
[2023-04-24] MEDS: POTASSIUM-SODIUM PHOSPHATE POWDER PACKET GT SCH ×2 (09:10→18:09)
[2023-04-24] MEDS: MIDODRINE HCL 2.5MG TABLET GT SCH ×3 (09:14→18:08)
[2023-04-24] MEDS: SODIUM CHLORIDE 0.45% 1,000 ML IV SCH ×2 (09:18→18:30)
[2023-04-24] MEDS: FERROUS SULFATE 300MG/5ML UDC GT SCH ×2 (10:03→17:00)
[2023-04-24 15:38] LABS: PLATELET ESTIMATE DECREASED
[2023-04-24] MEDS ORDERED: POTASSIUM CHLORIDE 10MEQ TABLET SR PO NR (17:30)
[2023-04-24] MEDS ORDERED: VANCOMYCIN 750MG PREMIX 150 ML IV NR (18:00)
[2023-04-24] MEDS ORDERED: POTASSIUM CHLORIDE 20MEQ/PACKET NG NR (18:24)
[2023-04-24] MEDS: FAMOTIDINE 20MG TABLET GT SCH (20:38)
[2023-04-25] VITALS (12 sets, daily range): BP systolic 95–119; BP diastolic 46–58; PULSE 91–102; RESP 16–20; TEMP 96.9–99.5; O2SAT 97–99
[2023-04-25] MEDS: IPRATROPIUM/ALBUTEROL 0.5-3(2.5)MG/3ML NEB HHN SCH ×6 (00:22→20:08)
[2023-04-25] MEDS: INSULIN LISPRO 100 UNITS/ML SUBCUT SCH ×2 (05:49→17:46)
[2023-04-25] MEDS: BLOOD SUGAR DIAGNOSTIC STRIP TEST SCH ×2 (05:49→17:46)
[2023-04-25] MEDS: SODIUM CHLORIDE 0.45% 1,000 ML IV SCH ×2 (05:59→15:11)
[2023-04-25 07:52] LABS: CHLORIDE 104 mEq/L (98-107); INDEX HEMOLYSI 1 (1-3); INDEX ICTERIC 1 (1-4); INDEX LIPEMIC 1 (1-3); POTASSIUM 3.7 mEq/L (3.5-5.1); SODIUM 137 mEq/L (136-145)
[2023-04-25 08:03] LABS: CALCIUM 8.9 mg/dL (8.5-10.1); CARBON DIOXIDE 28 mEq/L (21-32); GLUCOSE 129 mg/dL (70-105); PHOSPHORUS 2.3 mg/dL (2.5-4.9)
[2023-04-25 08:11] LABS: UREA NITROGEN BLOOD 84 mg/dL (7-21)
[2023-04-25] MEDS: CEFEPIME 1,000 MG in DEXTROSE 5% WATER 50 ML IV SCH (08:45)
[2023-04-25] MEDS: FOLIC ACID/VITAMIN B COMP W-C TABLET PO SCH (08:50)
[2023-04-25] MEDS: POTASSIUM-SODIUM PHOSPHATE POWDER PACKET GT SCH ×2 (08:50→17:43)
[2023-04-25] MEDS: DOCUSATE SODIUM SUGAR FREE 100MG/10ML UDC GT SCH (08:50)
[2023-04-25] MEDS: MIDODRINE HCL 2.5MG TABLET GT SCH ×3 (08:53→17:43)
[2023-04-25] MEDS: FERROUS SULFATE 300MG/5ML UDC GT SCH ×2 (08:54→17:43)
[2023-04-25] MEDS: MEROPENEM 1000MG in NORMAL SALINE 100ML IV SCH (15:11)
[2023-04-25] MEDS ORDERED: VANCOMYCIN 1G PREMIX 200 ML IV SCH (18:00)
[2023-04-25] MEDS: FAMOTIDINE 20MG TABLET GT SCH (20:37)
[2023-04-26] VITALS (10 sets, daily range): BP systolic 97–118; BP diastolic 45–68; PULSE 83–95; RESP 14–20; TEMP 97.1–98.9; O2SAT 97–98
[2023-04-26] MEDS: MEROPENEM 1000MG in NORMAL SALINE 100ML IV SCH ×3 (00:07→17:27)
[2023-04-26] MEDS: IPRATROPIUM/ALBUTEROL 0.5-3(2.5)MG/3ML NEB HHN SCH ×5 (00:37→21:44)
[2023-04-26] MEDS: SODIUM CHLORIDE 0.45% 1,000 ML IV SCH (01:12)
[2023-04-26 05:34] LABS: HEMATOCRIT. 22.8 % (42.0-52.0); HEMOGLOBIN. 7.6 g/dL (14.0-18.0); MEAN CORPUSCULAR HEMOGLOBIN 33.5 pg (28.0-32.0); MEAN CORPUSCULAR HGB CONC 33.3 g/dL (31.0-37.0); MEAN CORPUSCULAR VOLUME 100.6 fL (80.0-94.0); MEAN PLATELET VOLUME 10.8 fl (7.4-10.4); PLATELET 124 x1000/uL (130-400); RED BLOOD CELL COUNT 2.27 mill/uL (4.7-6.1); RED CELL DISTRIBUTION WIDTH 13.6 % (11.6-14.6)
[2023-04-26 05:54] LABS: CHLORIDE 109 mEq/L (98-107); INDEX HEMOLYSI 1 (1-3); INDEX ICTERIC 1 (1-4); INDEX LIPEMIC 1 (1-3); POTASSIUM 3.8 mEq/L (3.5-5.1); SODIUM 140 mEq/L (136-145)
[2023-04-26 05:59] LABS: CALCIUM 7.3 mg/dL (8.5-10.1); CARBON DIOXIDE 24 mEq/L (21-32); CREATININE 0.9 mg/dL (0.6-1.3); GLUCOSE 118 mg/dL (70-105); UREA NITROGEN BLOOD 53 mg/dL (7-21)
[2023-04-26] MEDS: BLOOD SUGAR DIAGNOSTIC STRIP TEST SCH ×2 (06:00→18:00)
[2023-04-26] MEDS: INSULIN LISPRO 100 UNITS/ML SUBCUT SCH ×2 (06:00→18:00)
[2023-04-26 06:46] LABS: DIFFERENTIAL COMMENT 1
[2023-04-26] MEDS: FOLIC ACID/VITAMIN B COMP W-C TABLET PO SCH (08:37)
[2023-04-26] MEDS: DOCUSATE SODIUM SUGAR FREE 100MG/10ML UDC GT SCH (08:37)
[2023-04-26] MEDS: POTASSIUM-SODIUM PHOSPHATE POWDER PACKET GT SCH ×2 (08:37→17:11)
[2023-04-26] MEDS: MIDODRINE HCL 2.5MG TABLET GT SCH ×3 (08:38→17:11)
[2023-04-26] MEDS: FERROUS SULFATE 300MG/5ML UDC GT SCH ×2 (08:38→17:12)
[2023-04-26 14:05] LABS: PLATELET ESTIMATE SLIGHTLY DECREASED
[2023-04-26] MEDS: FAMOTIDINE 20MG TABLET GT SCH (21:22)
[2023-04-27] VITALS (14 sets, daily range): BP systolic 113–199; BP diastolic 52–105; PULSE 82–97; RESP 14–20; TEMP 97.6–100.2
[2023-04-27] MEDS: IPRATROPIUM/ALBUTEROL 0.5-3(2.5)MG/3ML NEB HHN SCH ×7 (00:19→20:00)
[2023-04-27] MEDS: MEROPENEM 1000MG in NORMAL SALINE 100ML IV SCH ×3 (00:20→17:23)
[2023-04-27] MEDS: INSULIN LISPRO 100 UNITS/ML SUBCUT SCH ×2 (06:00→17:24)
[2023-04-27] MEDS: BLOOD SUGAR DIAGNOSTIC STRIP TEST SCH ×2 (06:09→17:24)
[2023-04-27 06:55] LABS: HEMATOCRIT. 23.6 % (42.0-52.0); HEMOGLOBIN. 8.1 g/dL (14.0-18.0); MEAN CORPUSCULAR HEMOGLOBIN 34.3 pg (28.0-32.0); MEAN CORPUSCULAR HGB CONC 34.2 g/dL (31.0-37.0); MEAN CORPUSCULAR VOLUME 100.4 fL (80.0-94.0); MEAN PLATELET VOLUME 10.4 fl (7.4-10.4); PLATELET 166 x1000/uL (130-400); RED BLOOD CELL COUNT 2.35 mill/uL (4.7-6.1); RED CELL DISTRIBUTION WIDTH 13.6 % (11.6-14.6); WHITE BLOOD COUNT 7.6 x1000/uL (4.5-11.0)
[2023-04-27 07:37] LABS: DIFFERENTIAL COMMENT 1
[2023-04-27 07:38] LABS: CHLORIDE 110 mEq/L (98-107); INDEX HEMOLYSI 1 (1-3); INDEX ICTERIC 1 (1-4); INDEX LIPEMIC 1 (1-3); POTASSIUM 3.9 mEq/L (3.5-5.1); SODIUM 141 mEq/L (136-145)
[2023-04-27 07:40] LABS: CALCIUM 9.1 mg/dL (8.5-10.1)
[2023-04-27 07:44] LABS: CARBON DIOXIDE 29 mEq/L (21-32); CREATININE 0.9 mg/dL (0.6-1.3); UREA NITROGEN BLOOD 48 mg/dL (7-21)
[2023-04-27] MEDS: DOCUSATE SODIUM SUGAR FREE 100MG/10ML UDC GT SCH (08:28)
[2023-04-27] MEDS: FERROUS SULFATE 300MG/5ML UDC GT SCH ×2 (08:29→17:24)
[2023-04-27] MEDS: FOLIC ACID/VITAMIN B COMP W-C TABLET PO SCH (08:29)
[2023-04-27] MEDS: POTASSIUM-SODIUM PHOSPHATE POWDER PACKET GT SCH ×2 (08:29→17:23)
[2023-04-27] MEDS: MIDODRINE HCL 2.5MG TABLET GT SCH ×4 (08:33→17:23)
[2023-04-27 09:12] LABS: GLUCOSE 125 mg/dL (70-105)
[2023-04-27 19:01] LABS: PLATELET ESTIMATE NORMAL
[2023-04-27] MEDS: FAMOTIDINE 20MG TABLET GT SCH (21:15)
[2023-04-28] VITALS (7 sets, daily range): BP systolic 115–163; BP diastolic 50–85; PULSE 87–98; RESP 17–20; TEMP 97.6–99.5; O2SAT 98
[2023-04-28] MEDS: MEROPENEM 1000MG in NORMAL SALINE 100ML IV SCH ×2 (02:22→08:10)
[2023-04-28] MEDS: INSULIN LISPRO 100 UNITS/ML SUBCUT SCH (05:59)
[2023-04-28] MEDS: BLOOD SUGAR DIAGNOSTIC STRIP TEST SCH (05:59)
[2023-04-28 07:18] LABS: HEMATOCRIT 27.3 % (42.0-52.0); HEMOGLOBIN 9.3 g/dL (14.0-18.0)
[2023-04-28] MEDS: FERROUS SULFATE 300MG/5ML UDC GT SCH (08:12)
[2023-04-28] MEDS: DOCUSATE SODIUM SUGAR FREE 100MG/10ML UDC GT SCH (08:12)
[2023-04-28] MEDS: FOLIC ACID/VITAMIN B COMP W-C TABLET PO SCH (08:12)
[2023-04-28] MEDS: POTASSIUM-SODIUM PHOSPHATE POWDER PACKET GT SCH (08:13)
[2023-04-28] MEDS: MIDODRINE HCL 2.5MG TABLET GT SCH (08:13)
== END 2023-04-28 12:55 | DRG 871 ==
LOC: ER 13:01 → MICUSO 17:24 → 7WST 04-23 10:38
PROVIDERS: ADMIT Internal Medicine Geriatric Medicine; ATTEND Internal Medicine Geriatric Medicine
PROC: 30233N1 Transfusion of Nonautologous Red Blood Cells into Peripheral Vein, Percutaneous Approach (ICD-10-PCS; principal; 2023-04-27)
DX: A41.9 Sepsis, unspecified organism (principal); J18.9 Pneumonia, unspecified organism; R65.21 Severe sepsis with septic shock; N39.0 Urinary tract infection, site not specified; N17.9 Acute kidney failure, unspecified; E87.1 Hypo-osmolality and hyponatremia; E44.0 Moderate protein-calorie malnutrition; J44.0 Chronic obstructive pulmonary disease with (acute) lower respiratory infection; E11.22 Type 2 diabetes mellitus with diabetic chronic kidney disease; D63.1 Anemia in chronic kidney disease; N18.9 Chronic kidney disease, unspecified; Z68.22 Body mass index [BMI] 22.0-22.9, adult; E78.00 Pure hypercholesterolemia, unspecified; E83.39 Other disorders of phosphorus metabolism; I12.9 Hypertensive chronic kidney disease with stage 1 through stage 4 chronic kidney disease, or unspecified chronic kidney disease; Z20.822 Contact with and (suspected) exposure to COVID-19; M19.90 Unspecified osteoarthritis, unspecified site; K40.90 Unilateral inguinal hernia, without obstruction or gangrene, not specified as recurrent; L89.150 Pressure ulcer of sacral region, unstageable; N40.0 Benign prostatic hyperplasia without lower urinary tract symptoms; Z68.30 Body mass index [BMI] 30.0-30.9, adult; Z79.01 Long term (current) use of anticoagulants; Z79.4 Long term (current) use of insulin; Z85.46 Personal history of malignant neoplasm of prostate; Z87.440 Personal history of urinary (tract) infections; Z93.1 Gastrostomy status
CPT/HCPCS: 36415; 71045; 76770; 80048; 80053; 80202; 81003; 82270; 82550; 82962; 83036; 83540; 83550; 83605; 83735; 84100; 84145; 84484; 84550; 85014; 85018; 85025; 86850; 86900; 86920; 87015; 87045; 87077; 87186; 87426; 87427; 87449; 87493; 89055; 93005; 94640; 99291; C9803; J0456; J0692; J0696; J2185; J3370; J3490; J7030; J7060; P9016; A4315